=== PATIENT | female | born 1995 | race African-American/Black ===

== ENCOUNTER 2020-01-15 14:07 | Emergency (ER) | payer MEDICAID, SELFPAY ==
[2020-01-15 15:23] VITALS: BP 121/74; PULSE 74; RESP 15; TEMP 36.7; O2SAT 97; BMI 21.6
--- NOTE | 2020-01-15 15:34 | HMH.EDUTC ---
[facility] [place]ression: Viral syndrome, Exposure to COVID-19 virus Disposition: Home, Self-Care Condition on Discharge: Good Instructions: Preventing the Spread of Coronavirus Discharge Instructions Additional Instructions: Drink plenty of fluids. Take tylenol for pain or fever. Take the medications as directed. Follow up with your regular doctor. GO TO THE ER FOR ANY WORSENING SYMPTOMS FOLLOW THE DIRECTIONS ON THE COVID-19 HAND OUT THAT WE GAVE YOU REGARDING SELF-ISOLATION UNTIL YOU KNOW YOUR COVID-19 RESULTS Referrals: PCP,No [Primary Care Provider] - Forms: Work/School Release Time of Disposition: 15:38 Medical Decision Making - Medical Records Medical records reviewed: No: I reviewed the patient's medical records. - Prabhu Inquiry Pt receiving controlled substance: No Vital Signs: 01/15/20 15:23 01/15/20 15:45 Temperature 98.1 F 98.1 F Temperature Source Oral Pulse Rate 74 Pulse Rate [Right Brachial] 74 Respiratory Rate 15 15 Blood Pressure 121/74 Blood Pressure [Right Arm] 121/74 Blood Pressure Mean [Right Arm] 89 Blood Pressure Source [Right Arm] Automatic Cuff Blood Pressure Position [Right Arm] Sitting 02 Sat by Pulse Oximetry 97 [facility] [place] - General Stated complaint: wants covid test Time Seen by Provider: 01/15/20 15:34 Mode of Arrival: Ambulatory Source of Information: Patient Limitations: No Limitations Description of Symptoms (Recalled from Triage Doc. by RN): PATIENT C/O ABDOMINAL PAIN AND FEVER FRIDAY THROUGH FRIDAY NIGHT, WEAKNESS, FATIGUE AND HEADACHE HEENT Symptoms (Recalled from RN notes): No Resp Symptoms (Recalled from RN notes): No Skin Symptoms (Recalled from RN notes): No MS Symptoms (Recalled from RN notes): No Functional Status (Recalled from RN notes): WNL - History of Present Illness Provider Complaint: She states that 2 days ago she was feeling very bad, having n/v, body aches, cough. Since then she has got better, but her work wants her to be tested for covid. - Related Data Allergies Allergy/AdvReac Type Severity Reaction Status Date / Time No Known Allergies Allergy Verified 01/15/20 15:29 - Worker's Comp Is this a Worker's Comp case?: No [facility] History - Hepatitis A Screen Drug use history?: No High risk sexual behaviors?: No History of sexually transmitted infection?: No Currently employed?: No Childcare worker?: No Do you have indoor plumbing?: Yes Do you have electricity?: Yes Attestation statement:: This patient has been screened for Hepatitis A risk factors. I have reviewed the patient's past medical history: Yes - Social History Alcohol Intake: never Occupational Status: other ROS Obtained: Yes All systems reviewed & no additional complaints - Constitutional Constitutional: Reports system reviewed and no additional complaints, except as docu - Eyes Eyes: Reports system reviewed and no additional complaints, except as docu - ENT Ears, Nose, Mouth, and Throat: Reports system reviewed and no additional complaints, except as docu - Cardiovascular Cardiovascular: Reports system reviewed and no additional complaints, except as docu - Respiratory Respiratory: Yes system reviewed and no additional complaints, except as docu - Gastrointestinal Gastrointestingal: Reports: system reviewed and no additional complaints, except as docu Physical Exam - General General appearance: alert, in no apparent distress - Head Head exam: atraumatic, normocephalic, normal inspection - Eye Eye exam: Present: normal appearance, PERRL, EOMI - ENT ENT exam: Present: normal exam, normal oropharynx, mucous membranes moist, TM's normal bilaterally, normal external ear exam - Neck Neck exam: Present: normal inspection, full ROM, trachea midline. Absent: meningismus, lymphadenopathy - Chest Chest inspection: Present: normal inspection, symmetric chest wall rise. Absent: tenderness - Respira
[2020-01-15 15:45] VITALS: BP 121/74; PULSE 74; RESP 15; TEMP 36.7; O2SAT 97
== END 2020-01-15 15:48 | disposition home or self-care (01) ==
PROVIDERS: Emergency Provider Nurse Practitioner Family
DX: Z20.828 Contact with and (suspected) exposure to other viral communicable diseases (principal); B34.9 Viral infection, unspecified
CPT/HCPCS: 99201; U0003

== ENCOUNTER 2020-04-15 15:53 | Emergency (ER) | payer MEDICAID, SELFPAY ==
[2020-04-15 16:35] VITALS: BP 115/79; PULSE 68; RESP 19; TEMP 36.9; O2SAT 98; BMI 21.6
--- NOTE | 2020-04-15 17:11 | HMH.EDUTC ---
[facility] [place] Clinical Impression: Exposure to COVID-19 virus, Viral syndrome Disposition: Home, Self-Care Condition on Discharge: Good Instructions: DI for COVID-19 (Suspected or Confirmed ), Coronavirus Disease 2019, Preventing the Spread of Coronavirus Discharge Instructions Additional Instructions: *Monitor Temp, Over the counter Motrin or Tylenol as directed/as needed Tylenol every 4 hours and Motrin every 6 hours (as long as your family doctor has told you that you can take it) for fever or pain. and straight to ER if unable to lower temp less than 101.0 after medication given *Warm salt water gargles may help to soothe the throat *Throat Lozenges *Warm fluids like tea with honey may help to soothe the throat *Sleep elevated *Humidifier/Vaporizer Follow up IMMEDIATELY for new or worsening symptoms or no Noticeable improvement over the next 48-72 hours. 911 for difficulty breathing or swallowing You were tested for today for COVID19 your test result should be back in the next 24-48 hours, you may call to the [facility] to see if your test results are back in the next 48 hours [phone] [facility] hours are 9am-9pm You was given a handout with instructions for Self Quarantine and Self isolation for while you wait on test results and what to do if they are positive If you are positive the Health Dept will be contacting you also Referrals: PCP,No [Primary Care Provider] - As needed Forms: Work/School Release Time of Disposition: 17:17 Medical Decision Making - Prabhu Inquiry Pt receiving controlled substance: No Prabhu was queried for this patient: No Vital Signs: 04/15/20 16:35 Temperature 98.4 F Temperature Source Oral Pulse Rate [Right Brachial] 68 Respiratory Rate 19 Blood Pressure [Right Arm] 115/79 Blood Pressure Mean [Right Arm] 91 Blood Pressure Source [Right Arm] Automatic Cuff Blood Pressure Position [Right Arm] Sitting 02 Sat by Pulse Oximetry 98 Oxygen Delivery Method Room Air Orders (Tests/Meds): ORDERS Category Date Time Status Covid-19 Nasal PCR ([facility]) Routine Lab 04/15/20 16:37 Ordered [facility] [place] - General Stated complaint: covid test Time Seen by Provider: 04/15/20 17:12 Mode of Arrival: Ambulatory Source of Information: Patient Limitations: No Limitations Description of Symptoms (Recalled from Triage Doc. by RN): PATIENT C/O COUGH, DECREASED SCENSE OF TASTE AND SMELL, AND CHILLS. POSITIVE EXPOSURE TO COVID HEENT Symptoms (Recalled from RN notes): No Resp Symptoms (Recalled from RN notes): No Skin Symptoms (Recalled from RN notes): No MS Symptoms (Recalled from RN notes): No Functional Status (Recalled from RN notes): WNL - History of Present Illness Provider Complaint: Patient state that she was exposed to COVID over a week ago State that she has been fine but for last couple of days she has been having body aches, chills, and recently loss her sense of taste and smell so she came in to get tested - Related Data Allergies Allergy/AdvReac Type Severity Reaction Status Date / Time No Known Allergies Allergy Verified 01/15/20 15:29 - Worker's Comp Is this a Worker's Comp case?: No [facility] History - Hepatitis A Screen Drug use history?: No High risk sexual behaviors?: No History of sexually transmitted infection?: No Currently employed?: No Childcare worker?: No Do you have indoor plumbing?: Yes Do you have electricity?: Yes Attestation statement:: This patient has been screened for Hepatitis A risk factors. I have reviewed the patient's past medical history: Yes - Social History Alcohol Intake: never Occupational Status: other ROS Obtained: Yes All systems reviewed & no additional complaints, Yes Systems reviewed as appropriate & no additional complaints - Constitutional Constitutional: Reports system reviewed and no additional complaints, except as docu, Reports body ache, Reports chills, Reports headache(s) - ENT Ears, Nose, Mouth, and Throat: Re
[2020-04-15 17:23] VITALS: BP 115/79; PULSE 68; RESP 19; TEMP 36.9; O2SAT 98
[2020-04-15 20:32] LABS: UTC Pregnancy Test, Urine Negative (Negative)
== END 2020-04-15 17:25 | disposition home or self-care (01) ==
PROVIDERS: Emergency Provider Nurse Practitioner
DX: Z20.822 Contact with and (suspected) exposure to COVID-19 (principal); B34.9 Viral infection, unspecified; R05 Cough
CPT/HCPCS: 81025; 99202; G0463; U0003

== ENCOUNTER 2022-07-12 16:23 | Emergency (ER) | payer MEDICAID, SELFPAY ==
[2022-07-12 16:24] VITALS: BP 174/103; PULSE 87; RESP 16; TEMP 36.9; O2SAT 99; BMI 21.6
[2022-07-12 16:38] VITALS: BP 174/103; PULSE 105; O2SAT 100
--- NOTE | 2022-07-12 16:42 | HMH.EDABDPAI ---
Discharge Plan Disposition Patient Disposition: Home, Self-Care Chief Complaint: PAIN Referrals Follow up/Referrals: Provider,Referral, [Primary Care Provider] - See instructions Activity Restrictions/Add. Instructions Additional Instructions/Restrictions: Your work-up in the emergency department today did not show any dangerous abnormalities. Your urine is normal. You are not . Your chemistries and your blood are normal. The other blood tests are normal as well. You can take [id number] Tylenol and/or Motrin for your symptoms. If you do not improve in the next week or 2 please follow-up with a primary care doctor of your choice. Clinical Impressions Clinical Impression: Abdominal pain Instructions Patient Instructions: Acute Abdominal Pain Discharge ED Provider: Roel Gant Abdominal Pain HPI General Chief Complaint: PAIN Stated Complaint: Pain Lower stomach,back.L shoulder Time Seen by Provider: 07/12/22 16:34 Mode of Arrival: Ambulatory Source of Information: Patient History of Present Illness HPI narrative: The patient presents to the emergency department complaining of right flank and right lower quadrant pain for approximately 1 year. It has gotten worse over the last 2 months. The patient does not know when she had her last normal menstrual period because she has an IUD. The patient also complains of some left posterior shoulder pain which radiates to the elbow. 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 She is a smoker and has stopped smoking about 1 month ago but still continues to vape. She denies any nausea, vomiting, diarrhea, or fever. Related Data Allergies Allergy/AdvReac Type Severity Reaction Status Date / Time No Known Allergies Allergy Verified 01/15/20 15:29 [facility] Disclaimer: The information contained in this section may have been updated after the patient was seen, as this information can be updated by other users. Social History Smoking Status: Current every day smoker alcohol intake: never current occupational status: other Travel in the last 8 weeks: None ROS Obtained: Yes All systems reviewed & no additional complaints except as documented Physical Exam General General appearance: alert Head Head exam: atraumatic Eye Eye exam: Present normal appearance; Absent scleral icterus or jaundice ENT ENT exam: Present normal exam Neck Neck exam: Present normal inspection and full ROM; Absent tenderness or meningismus Chest Chest inspection: Present normal inspection and symmetric chest wall rise; Absent tenderness Respiratory Respiratory exam: Present normal lung sounds bilaterally; Absent respiratory distress or accessory muscle use Cardiovascular Cardiovascular exam: Present regular rate, normal rhythm and normal heart sounds Abdominal Exam Abdominal exam: Present soft and normal bowel sounds; Absent distention, tenderness, heel tap sign, Mcguire's sign, Rovsing's sign, tenderness at McBurney's Point or mass Extremities Exam Extremities exam: Present normal inspection and full ROM; Absent edema or calf tenderness Back Exam Back exam: Present normal inspection; Absent CVA tenderness (R) or CVA tenderness (L) Neurological Exam Neurological exam: Present alert and oriented X3 Psychiatric Psychiatric exam: Present normal affect and normal mood Skin Skin exam: Present warm, dry, intact and normal color Medical Decision Making Prabhu Inquiry Pt receiving controlled substance: No Vital Signs: 07/12/22 16:24 07/12/22 16:38 07/12/22 18:04 Temperature 98.5 F Temperature Source Oral Pulse Rate 105 H 75 Pulse Rate [Left Radial] 87 Respiratory Rate 16 Blood Pressure 174/103 H 126/84 Blood Pressure [Right Arm] 174/103 H Blood Pressure Mean 126 100 Blood Pressure Mean [Right Arm] 126 Blood Pressure Source [Right Arm] Automatic Cuff Blood Pressure Position [Right Arm] Sitting 02 Sat by
--- NOTE | 2022-07-12 17:16 | ECG_ITS ---
APPROVED REPORT Exam: Resting ECG HR:85 bpm ECG Measurements Heart Rate 85 AXES MO 158 P 59 QRSd 93 QRS 91 QT 376 T 49 QTc 419 Conclusion SINUS RHYTHM BORDERLINE RIGHT AXIS DEVIATION [QRS AXIS > 90] BORDERLINE ECG UNCONFIRMED REPORT Electronically signed by : Juliocesar Oro MD 07/13/2022 15:40:40
[2022-07-12 17:22] LABS: Microscopic, Urine URINE MICROSCOPIC (MICROSCOPIC)
[2022-07-12 17:32] LABS: Basophils % 0.5 % (0.1-2.0); Eosinophils # 0.3 K/mm3 (0.0-0.4); Eosinophils % 3.7 % (0.1-12.0); Hematocrit 44.1 % (37.0-47.0); Hemoglobin 14.2 g/dL (12.2-16.2); Lymphocytes # 2.3 K/mm3 (0.7-4.5); Mean Corpuscular HGB Conc 32.2 g/dL (31.8-35.4); Mean Corpuscular Hemoglobin 30.8 pg (27.0-31.2); Mean Corpuscular Volume 95.6 fl (81-99); Mean Platelet Volume 7.8 fl (7.4-10.4); Monocytes # 0.5 K/mm3 (0.1-1.0); Monocytes % 7.2 % (1.7-9.3); Neutrophils # 3.6 K/mm3 (1.8-7.8); Neutrophils % 54.5 % (37.0-80.0); Platelet Count 300 K/mm3 (142-424); Red Blood Count 4.62 M/mm3 (4.20-5.40); Red Cell Distribution Width 13.4 % (11.5-17.5); White Blood Count 6.7 K/mm3 (4.8-10.8)
[2022-07-12 17:41] LABS: Chloride 98 mmol/L (98-107)
[2022-07-12 17:42] LABS: Potassium 3.8 mmoL/L (3.5-5.1); Sodium 138 mmol/L (136-145)
[2022-07-12 17:43] LABS: HCG Qualitative, Serum Negative (Negative)
[2022-07-12 17:44] LABS: Alanine Aminotransferase 19 U/L (12-78); Alkaline Phosphatase 57 U/L (38-126); Aspartate Amino Transferase 30 U/L (14-36); Bilirubin,Total 0.4 mg/dl (0.2-1.3); Blood Urea Nitrogen 8 mg/dl (7-17); Creatinine Clearance Estimated 111 mL/min (50-200); Estimated Glomerular Filt Rate 100 ml/min (>60); GFR (African American) 121 ML/MIN (>60)
[2022-07-12 17:45] LABS: Albumin Level 4.5 g/dl (3.5-5.0); Albumin/Globulin Ratio 1.9 (1.1-1.8); Anion Gap 10.8 mEq/L (5-15); Calcium 8.5 mg/dl (8.4-10.2); Carbon Dioxide 33 mmol/L (22.0-30.0); Globulin 2.4 g/dL (1.3-3.2); Glucose 84 mg/dl (74-100); Total Protein,Serum 6.9 g/dl (6.3-8.2)
[2022-07-12 17:54] LABS: Appearance,Urine CLEAR (Clear); Bilirubin,Urine Negative (Negative); Blood, Urine Negative (Negative); Color,Urine YELLOW (Yellow); Glucose,Urine (UA) Negative (Negative); Ketones,Urine Negative (Negative); Leukocyte Esterase,Urine Negative (Negative); Nitrate,Urine Negative (Negative); PH,Urine 6.5 (5.0-8.5); Protein,Urine Negative (Negative); Specific Gravity, Urine 1.015 (1.005-1.030); Urobilinogen,Urine 0.2 EU/dl (0.2)
[2022-07-12 18:04] VITALS: BP 126/84; PULSE 75; O2SAT 100
[2022-07-12 18:04] LABS: Bacteria,Urine Trace /lpf; Squamous Epithelial Cell,Urine Occasional #/hpf (0-5); WBC,Urine Occasional #/hpf (0-3)
[2022-07-12 18:42] VITALS: BP 123/73; PULSE 81; O2SAT 98
[2022-07-12 18:44] VITALS: BP 110/71; PULSE 86; RESP 18; TEMP 36.8; O2SAT 99
== END 2022-07-12 18:45 | disposition home or self-care (01) ==
PROVIDERS: Emergency Provider Emergency Medicine
DX: R10.31 Right lower quadrant pain (principal); M25.512 Pain in left shoulder; M25.522 Pain in left elbow; F17.290 Nicotine dependence, other tobacco product, uncomplicated
CPT/HCPCS: 80053; 81001; 84703; 85025; 93005; 99285

== ENCOUNTER → 2023-02-24 15:12 | Outpatient (CLI) | payer MEDICAID, SELFPAY ==
[2023-02-24 16:25] LABS: Chol/HDL Ratio 2.4 (1-3.5); Cholesterol 226 mg/dl (140-200); HDL Cholesterol 95 mg/dl (40-60); Triglycerides 84 mg/dl (30-150); VLDL Cholesterol 17 mg/dL (0-40)
[2023-02-24 16:36] LABS: Direct LDL Cholesterol 99.02 mg/dL (100-129)
[2023-02-24 16:43] LABS: Free T4 (Free Thyroxine) 0.95 ng/dl (0.78-2.19)
[2023-02-24 16:56] LABS: Thyroid Stimulating Hormone 2.06 uIU/mL (0.465-4.68)
== END ==
PROVIDERS: PCP Internal Medicine; Visit Provider Internal Medicine
DX: Z13.21 Encounter for screening for nutritional disorder (principal); Z13.220 Encounter for screening for lipoid disorders; Z13.29 Encounter for screening for other suspected endocrine disorder; K92.2 Gastrointestinal hemorrhage, unspecified; E55.9 Vitamin D deficiency, unspecified; Z79.899 Other long term (current) drug therapy
CPT/HCPCS: 80061; 82306; 84439; 84443

== ENCOUNTER 2023-03-25 07:40 | Outpatient (CLI) | payer MEDICAID, SELFPAY ==
[2023-03-27 23:40] LABS: Neisseria gonorrhoeae, NAA Negative (Negative)
== END 2023-03-25 23:59 ==
LOC: LAB.DROPOF 03-26 07:41
PROVIDERS: PCP Obstetrics & Gynecology; Visit Provider Obstetrics & Gynecology
DX: Z34.91 Encounter for supervision of normal pregnancy, unspecified, first trimester (principal); Z3A.01 Less than 8 weeks gestation of pregnancy
CPT/HCPCS: 87086; 87491; 87591

== ENCOUNTER 2023-04-17 19:33 | Outpatient (CLI) | payer MEDICAID, SELFPAY ==
[2023-04-17 19:55] LABS: Occult Blood,Stool Negative (Negative)
== END 2023-04-17 23:59 ==
LOC: LAB.DROPOF 19:36
PROVIDERS: PCP Nurse Practitioner; Visit Provider Nurse Practitioner
DX: K92.2 Gastrointestinal hemorrhage, unspecified (principal)
CPT/HCPCS: 82272; G0328

== ENCOUNTER 2023-04-22 11:49 | Outpatient (CLI) | payer MEDICAID, SELFPAY ==
[2023-04-22 12:24] LABS: Basophils # 0.1 K/mm3 (0-0.2); Basophils % 0.7 % (0.1-2.0); Eosinophils # 0.2 K/mm3 (0.0-0.4); Eosinophils % 2.7 % (0.1-12.0); Hematocrit 40.1 % (37.0-47.0); Hemoglobin 13.5 g/dL (12.2-16.2); Lymphocytes % 27.2 % (10-50); Mean Corpuscular HGB Conc 33.7 g/dL (31.8-35.4); Mean Corpuscular Hemoglobin 31.2 pg (27.0-31.2); Mean Corpuscular Volume 92.6 fl (81-99); Mean Platelet Volume 7.9 fl (7.4-10.4); Monocytes # 0.5 K/mm3 (0.1-1.0); Monocytes % 6.4 % (1.7-9.3); Neutrophils # 4.6 K/mm3 (1.8-7.8); Neutrophils % 62.9 % (37.0-80.0); Platelet Count 259 K/mm3 (142-424); Red Blood Count 4.33 M/mm3 (4.20-5.40); Red Cell Distribution Width 13.5 % (11.5-17.5); White Blood Count 7.3 K/mm3 (4.8-10.8)
[2023-04-23 10:03] LABS: Progesterone 22.7 ng/mL (.); Rapid Plasma Reagin Ab Titer Non Reactive titer (NonRea<1:1)
[2023-04-29 10:36] LABS: HIV Screen 4th Generation wRfx Non Reactive; Hepatitis B Surface Antigen Negative; Hepatitis C Antibody Non Reactive
[2023-04-29 10:37] LABS: Rubella Antibodies, IgG 1.78
== END 2023-04-22 23:59 ==
LOC: LAB 11:50
PROVIDERS: PCP Internal Medicine; Visit Provider Obstetrics & Gynecology
DX: Z34.91 Encounter for supervision of normal pregnancy, unspecified, first trimester (principal); Z3A.11 11 weeks gestation of pregnancy
CPT/HCPCS: 36415; 84144; 85025; 86593; 86703; 86762; 86850; 87340; 87380; G0432

== ENCOUNTER 2023-06-17 13:09 | Outpatient (CLI) | payer MEDICAID, SELFPAY ==
--- NOTE | 2023-06-17 13:12 | US_ITS ---
PROCEDURE: US OB >= 14 WEEKS FETUS CLINICAL INDICATION: 20 week anatomy scan COMPARISON: No exams were available for comparison FINDINGS: Transabdominal sonographic images of the pelvis were obtained. From her established due date she is 19 weeks 6 days. Single viable intrauterine gestation. Cephalic position. Placenta: Posteriorplacenta grade 1. There is an average amount of fluid. The cervix appears satisfactory. Closed and measuring 3.4 cm in length. Complete survey performed and was unremarkable on the submitted images as in PACS. No discrete anomalies identified on survey imaging by technologist. Active fetus. Three-vessel cord with satisfactory umbilical cord insertion. 4- chamber heart noted. Situs, aortic arch, LVOT, RVOT, three-vessel view appear normal. There is a small echogenic foci in the left ventricle. Survey of brain & ventricles Unremarkable. Cerebellum, thalamus, choroid plexus, cisterna magna appear normal. Face and neck survey unremarkable. Profile, nasion, lips and nose appeared normal. Diaphragm and chest views unremarkable. Abdomen: Both kidneys noted and unremarkable. Stomach and bladder noted and satisfactory. Spine: Survey of the spine satisfactory with no anomalies identified nor imaged. Cervical, thoracic, lower spine appear normal. Both arms and legs noted. Amniotic Fluid: Adequate. Measurements: Average ultrasound age 20weeks 0 days. Estimated due date by ultrasound age 0811/04/2023. Estimated weight 316g BPD = 20weeks 2days HC = 19weeks 5days AC = 20weeks 0 days FL = 19weeks 6days Growth Percentile= 44 Heart Rate = 133bpm Cerebellum = 20weeks 1day Humerus = 19weeks 6days HC/AC is 1.16 FL/BPD is 0.67 FL/AC is 0.22 IMPRESSION: 1. Viable fetus in the cephalic presentation with a posterior placenta grade 1. 2. The fluid is within normal limits. 3. Anatomical scan appears normal. There is a small intracardiac echogenic focus in the left ventricle. 4. There is significant hypervascularity and dilation of veins in the right lower quadrant close to but lateral to the placenta. 5. Suggest follow-up scan at 28 weeks. Consider MFM consult as well. 6. biometry is consistent with the dates. Dictated by: Noah Charles MD 06/18/2023 08:54 Noah Charles MD in [place] 06/18/2023 08:54
== END 2023-06-17 23:59 ==
LOC: RAD 13:10
PROVIDERS: PCP Internal Medicine; Visit Provider Obstetrics & Gynecology
DX: O26.892 Other specified pregnancy related conditions, second trimester (principal); Z3A.20 20 weeks gestation of pregnancy; Z36.89 Encounter for other specified antenatal screening
CPT/HCPCS: 76805

== ENCOUNTER 2023-08-21 09:11 | Outpatient (CLI) | payer MEDICAID, SELFPAY ==
--- NOTE | 2023-08-21 09:12 | US_ITS ---
PROCEDURE: US OB FOLLOW UP CLINICAL INDICATION: significant hypervascularity and dilation COMPARISON: US US OB >= 14 WEEKS FETUS from 06/17/2023 FINDINGS: Transabdominal sonographic images of the uterus were obtained. From her established due date she is 29weeks 1day. The following parameters are obtained: Viable Fetus in the cephalic presentation with a posterior placenta grade 2. The previous described area of significant vasculature is still present and has increased in size since her last ultrasound. Average ultrasound age is 29weeks 5days Estimated weight 1,414g, 3 lb 2 oz. Cervix measures 5.8 cm. Measurements: heart Rate = 134bpm BPD = 30weeks 2days, 73 percentile HC = 29weeks 4days, 28 percentile AC = 30weeks 0 days, 66 percentile FL = 29weeks 0 days, 29 percentile HC/AC is 1.05 FL/BPD is 0.73 FL/AC is 0.21 52 percentile Amniotic fluid index: 23.25cm, MVP 7.97 cm. No obvious anomalies evident.Kidneys, profile, nasion, stomach, bladder, three-vessel cord appear normal. IMPRESSION: 1. Viable fetus in the cephalic presentation with a posterior placenta grade 2. 2. Adjacent to and behind the placenta there is significantly increased vascularity. The uterine wall appears thickened. Cannot rule out a placenta accreta. This area has increased in size since her last exam. 3. Suggest a maternal medicine consult. 4. The fluid is elevated with an amniotic fluid index of 23.25 cm. 5. There has been good interval growth with the fetus currently 52nd percentile. 6. And ICEF is still present within the left ventricle. 7. Dr. Fretias was notified. Dictated by: Noah Charles MD 08/21/2023 14:27 Noah Charles MD in [place] 08/21/2023 14:27
== END 2023-08-21 23:59 | disposition home or self-care (01) ==
LOC: RAD 09:12
PROVIDERS: PCP Internal Medicine; Visit Provider Obstetrics & Gynecology
DX: O28.3 Abnormal ultrasonic finding on antenatal screening of mother (principal); Z3A.29 29 weeks gestation of pregnancy
CPT/HCPCS: 76816